=== PATIENT | female | born 1960 | race Caucasian/White ===

== ENCOUNTER → 2016-10-01 | Outpatient (CLI) | payer OTHER | END | disposition home or self-care (01) | LOC: CARD 09:47 | PROVIDERS: ATTEND Physician Assistant | DX: G56.01 Carpal tunnel syndrome, right upper limb (principal) | CPT/HCPCS: 95885; 95908 ==

== ENCOUNTER 2017-03-18 11:06 | Day surgery (SDC) | payer OTHER ==
[2017-03-16 12:02] LABS: BLOOD UREA NITROGEN 14 mg/dL (7-18)
[2017-03-16 12:06] LABS: ASPARTATE AMINO TRANSFERASE 21 U/L (15-37)
[~2017-03-18] VITALS: Ht 163.8 cm; Wt 104.5 kg
[~2017-03-18 11:06] MED LIST: ALPR-475 PO; ASCO-90 PO; BIOT25005 PO; BUPR8TAB SL; CALC1CAP8 PO; CHOL500015 PO; CINN1CAP PO; CLOT15CR6 TP; CYAN1TAB29 PO; CYCL-259 PO; DULO60CA7 PO; FERR-46 PO; GLUC-149 PO; HYDR25TA6 PO; KRIL1CAP PO; MULT-658 PO; NYST60PO TP; OMEG-26 PO; PREG300C PO; PREG75CA PO; TRAZ100T15 PO; VITA100022 PO; [UNRECOGNIZED DRUG - OTHER] PO; magnesium PO
[2017-03-18 11:34] VITALS: BP 121/76
[2017-03-18] MEDS ORDERED: LACTATED RINGERS 1,000 ML IV SCH (11:47)
[2017-03-18] MEDS ORDERED: BUPIVACAINE/PF 0.5% ONE (12:52)
[2017-03-18] MEDS ORDERED: LIDOCAINE/PF 1%, 30ML ONE (12:52)
[2017-03-18] MEDS ORDERED: EPINEPHRINE 1 MG/ML, 1ML ONE (12:53)
[2017-03-18] MEDS ORDERED: FENTANYL PF 250 MCG/5ML ONE (13:38)
[2017-03-18] MEDS ORDERED: MIDAZOLAM 1 MG/ML, 2ML ONE (13:38)
[2017-03-18] MEDS ORDERED: LIDOCAINE GEL 2%, 5ML ONE (13:39)
[2017-03-18] MEDS ORDERED: PROPOFOL 10 MG/ML, 20ML ONE (13:52)
[2017-03-18] MEDS ORDERED: CEFAZOLIN 1,000 MG ONE (13:54)
[2017-03-18] MEDS ORDERED: DEXAMETHASONE 4 MG/ML, 5ML ONE (13:54)
[2017-03-18] MEDS ORDERED: ONDANSETRON 2MG/ML, 2ML ONE ×2 (14:01)
[2017-03-18] MEDS ORDERED: OXYcodone 5 MG/5 ML ORAL.SOL UDC PO PRN (14:30)
[2017-03-18] MEDS ORDERED: EPHEDRINE 50 MG/ML, 1ML IVPush PRN (14:30)
[2017-03-18] MEDS ORDERED: PROMETHAZINE 25 MG/ML, 1ML IV PRN (14:30)
[2017-03-18] MEDS ORDERED: LORazepam 2 MG/ML, 1ML IVPush PRN (14:30)
[2017-03-18] MEDS ORDERED: LABETALOL 5MG/ML, 20ML IV PRN (14:30)
[2017-03-18] MEDS ORDERED: FENTANYL PF 100 MCG/2ML IV PRN (14:30)
[2017-03-18] MEDS ORDERED: ONDANSETRON 2MG/ML, 2ML IVPush PRN (14:30)
[2017-03-18] MEDS ORDERED: HYDROmorphone 1 MG/ML, 1ML IV PRN (14:30)
[2017-03-18] MEDS ORDERED: MIDAZOLAM 1 MG/ML, 2ML IV PRN (14:30)
[2017-03-18] MEDS ORDERED: ACETAMINOPHEN 325 MG TABLET PO PRN (14:30)
[2017-03-18] MEDS ORDERED: ACETAMINOPHEN 650 MG/20.3 ML UDC ONE (14:53)
[2017-03-18] MEDS ORDERED: OXYcodone 5 MG/5 ML ORAL.SOL UDC ONE (14:53)
== END 2017-03-18 17:30 | disposition home or self-care (01) ==
LOC: OUT 11:06
PROVIDERS: ATTEND Orthopaedic Surgery
DX: G56.01 Carpal tunnel syndrome, right upper limb (principal); Z87.39 Personal history of other diseases of the musculoskeletal system and connective tissue; Z88.5 Allergy status to narcotic agent; Z88.8 Allergy status to other drugs, medicaments and biological substances
CPT/HCPCS: 36415; 64721; 80053; 82962; 93005; J0171; J0690; J1100; J2250; J2405; J2704; J3010; J3490; J7120

== ENCOUNTER → 2017-04-28 | Outpatient (CLI) | payer OTHER ==
[~2017-04-28] MED LIST changes: +MAGN250T8 PO; +[UNRECOGNIZED DRUG - CODE] PO; +iron PO
== END ==
LOC: STAR 13:35
PROVIDERS: ATTEND Pediatrics
DX: Z02.9 Encounter for administrative examinations, unspecified (principal)

== ENCOUNTER 2017-05-02 11:32 | Day surgery (SDC) | payer OTHER ==
[2017-04-28 14:16] VITALS: BP 132/82
[~2017-05-02] VITALS: Ht 163.8 cm; Wt 107.9 kg
[2017-05-02] MEDS ORDERED: LACTATED RINGERS 1,000 ML IV SCH (12:03)
[2017-05-02 12:09] VITALS: BP 132/82
[2017-05-02] MEDS ORDERED: LIDOCAINE 1%, 2ML ONE (12:17)
[2017-05-02] MEDS ORDERED: LIDOCAINE 1%, 2ML SQ PRN (12:30)
[2017-05-02] MEDS ORDERED: FENTANYL PF 100 MCG/2ML ONE (13:56)
[2017-05-02] MEDS ORDERED: MIDAZOLAM 1 MG/ML, 2ML ONE (13:56)
[2017-05-02] MEDS ORDERED: EPINEPHRINE 1 MG/ML, 1ML ONE (14:00)
[2017-05-02] MEDS ORDERED: BUPIVACAINE/PF 0.5% ONE (14:00)
[2017-05-02] MEDS ORDERED: PROPOFOL 10 MG/ML, 20ML ONE ×2 (14:03)
[2017-05-02] MEDS ORDERED: LIDOCAINE GEL 2%, 5ML ONE (14:03)
[2017-05-02] MEDS ORDERED: CEFAZOLIN 1,000 MG ONE ×2 (14:14)
[2017-05-02] MEDS ORDERED: ONDANSETRON 2MG/ML, 2ML ONE (14:15)
[2017-05-02] MEDS ORDERED: DEXAMETHASONE 4 MG/ML, 1ML ONE (14:15)
[2017-05-02] MEDS ORDERED: LABETALOL 5MG/ML, 20ML IV PRN (14:30)
[2017-05-02] MEDS ORDERED: HYDROmorphone 1 MG/ML, 1ML IV PRN (14:30)
[2017-05-02] MEDS ORDERED: EPHEDRINE 50 MG/ML, 1ML IVPush PRN (14:30)
[2017-05-02] MEDS ORDERED: ACETAMINOPHEN 325 MG TABLET PO PRN (14:30)
[2017-05-02] MEDS ORDERED: MEPERIDINE/PF 25MG/0.5ML IVPush PRN (14:30)
[2017-05-02] MEDS ORDERED: LORazepam 2 MG/ML, 1ML IVPush PRN (14:30)
[2017-05-02] MEDS ORDERED: ONDANSETRON 2MG/ML, 2ML IVPush PRN (14:30)
[2017-05-02] MEDS ORDERED: OXYcodone 5 MG/5 ML ORAL.SOL UDC PO PRN (14:30)
[2017-05-02] MEDS ORDERED: FENTANYL PF 100 MCG/2ML IV PRN (14:30)
[2017-05-02] MEDS ORDERED: PROMETHAZINE 25 MG/ML, 1ML IV PRN (14:30)
[2017-05-02] MEDS ORDERED: MIDAZOLAM 1 MG/ML, 2ML IV PRN (14:30)
[2017-05-02] MEDS ORDERED: ACETAMINOPHEN 650 MG/20.3 ML UDC ONE (15:42)
[2017-05-02] MEDS ORDERED: OXYcodone 5 MG/5 ML ORAL.SOL UDC ONE (15:42)
== END 2017-05-02 18:20 ==
LOC: OR 11:32
PROVIDERS: ATTEND Orthopaedic Surgery
DX: G56.02 Carpal tunnel syndrome, left upper limb (principal); E11.9 Type 2 diabetes mellitus without complications; Z88.5 Allergy status to narcotic agent; Z88.8 Allergy status to other drugs, medicaments and biological substances; Z87.39 Personal history of other diseases of the musculoskeletal system and connective tissue
CPT/HCPCS: 64721; 82962; J0171; J0690; J1100; J2250; J2405; J2704; J3010; J3490; J7120

== ENCOUNTER 2017-07-07 14:45 | Emergency (ER) | payer OTHER ==
[~2017-07-07] VITALS: Ht 165.1 cm; Wt 105.0 kg
[2017-07-07 16:20] LABS: BASOPHILS # (AUTO) 0.13 x10^3/uL (0-0.1); BASOPHILS % (AUTO) 2 % (0-1); EOSINOPHILS # (AUTO) 0.25 x10^3/uL (0-0.4); EOSINOPHILS % (AUTO) 3 % (1-7); LYMPHOCYTES % (AUTO) 49 % (22-44); MD NO; MEAN CORPUSCULAR HEMOGLOBIN 30.8 pg (27.0-34.8); MEAN CORPUSCULAR HGB CONC 35.7 g/dL (32.4-35.8); MEAN CORPUSCULAR VOLUME 86.2 fL (80-100); MEAN PLATELET VOLUME 8.1 fL (7.4-10.4); MONOCYTES # (AUTO) 0.77 x10^3/uL (0.2-0.8); MONOCYTES % (AUTO) 9 % (2-9); NEUTROPHILS # (AUTO) 3.15 x10^3/uL (1.8-6.8); NEUTROPHILS % (AUTO) 37 % (42-75); PLATELET COUNT 506 x10^3/uL (130-400); RED BLOOD COUNT 4.75 x10^6/uL (3.82-5.3); RED CELL DISTRIBUTION WIDTH 14.7 % (9.6-15.2)
[2017-07-07 16:29] LABS: CHLORIDE 101 mmol/L (98-107)
[2017-07-07 16:37] LABS: ALANINE AMINOTRANSFERASE 28 U/L (12-78); ALBUMIN 3.1 g/dL (3.4-5.0); ALKALINE PHOSPHATASE 138 U/L (45-117); ANION GAP 6 mmol/L (5-15); BILIRUBIN,TOTAL 0.8 mg/dL (0.2-1.0); CALCIUM 8.7 mg/dL (8.5-10.1); CREATININE 0.74 mg/dL (0.55-1.02); TOTAL PROTEIN 7.1 g/dL (6.4-8.2)
[2017-07-07 18:16] VITALS: BP 129/78
[2017-07-07] MEDS ORDERED: FUROSEMIDE 20 MG TABLET PO ONE (18:30)
== END 2017-07-07 18:36 ==
LOC: ED 17:27
DX: R60.0 Localized edema (principal); E11.9 Type 2 diabetes mellitus without complications; G89.29 Other chronic pain; M79.7 Fibromyalgia; I25.2 Old myocardial infarction
CPT/HCPCS: 36415; 71045; 80053; 83880; 85025; 93005; 93970; 99285